=== PATIENT | female | born 2005 ===

== ENCOUNTER 2024-07-25 22:21 | Emergency (ER) | payer SELFPAY ==
[2024-07-25 22:37] VITALS: BP 121/77; PULSE 82; RESP 18; TEMP 36.8; O2SAT 98; BMI 20.9
== END 2024-07-26 04:46 | disposition left against medical advice (07) ==
PROVIDERS: Emergency Provider Emergency Medicine
DX: S80.861A Insect bite (nonvenomous), right lower leg, initial encounter (principal); S50.861A Insect bite (nonvenomous) of right forearm, initial encounter; W57.XXXA Bitten or stung by nonvenomous insect and other nonvenomous arthropods, initial encounter; Y93.9 Activity, unspecified; Y92.9 Unspecified place or not applicable; Y99.9 Unspecified external cause status; Z53.21 Procedure and treatment not carried out due to patient leaving prior to being seen by health care provider
CPT/HCPCS: 99281